=== PATIENT | male | born 1980 | race Caucasian/White ===

== ENCOUNTER 2020-03-28 09:42 | Outpatient (REF) | payer OTHER, SELFPAY ==
[2020-03-28 10:44] LABS: Hematocrit 42.6 % (42-52); Hemoglobin 14.4 g/dl (14.0-18.0); Mean Corpuscular HGB Conc 33.8 g/dl (31.0-36.0); Mean Corpuscular Hemoglobin 29.6 pg (27.0-33.0); Mean Corpuscular Volume 87.7 fL (80-98); Mean Platelet Volume 10.7 fL (9.4-12.4); Platelet Count 210 X10*3/uL (160-400); Red Blood Count 4.86 X10*6/uL (4.60-5.80); Red Cell Distribution Width 13.6 % (11.0-16.0); White Blood Count 5.9 X10*3/uL (4.8-10.8)
[2020-03-28 11:09] LABS: Alanine Aminotransferase 81 U/L (0-40); Albumin Level 4.5 g/dL (3.5-5.0); Alkaline Phosphatase 60 U/L (39-117); Anion Gap 12 (12-20); Aspartate Amino Transferase 32 U/L (5-37); Bilirubin Direct 0.2 mg/dL (0.0-0.5); Bilirubin Total 0.6 mg/dL (0.0-1.0); Blood Urea Nitrogen 16 mg/dL (9-16); Calcium 9.5 mg/dL (8.4-10.2); Carbon Dioxide 27 mmol/L (22-29); Chloride 106 mmol/L (96-108); Cholesterol 181 mg/dL; Estimated Glomerular Filt Rate > 60; Glucose Fasting 93 mg/dL (60-99); HDL Cholesterol 49 mg/dL; LDL Cholesterol Calculated 94 mg/dl; Potassium 4.1 mmol/L (3.3-5.1); Sodium 141 mmol/L (135-145); Total Protein 7.3 g/dL (6.5-8.0); Triglycerides 192 mg/dL
[2020-03-28 11:32] LABS: TSH reflex Free T4 1.88 uIU/mL (0.32-4.0)
== END 2020-03-28 09:43 | disposition home or self-care (01) ==
LOC: HO.LAB 09:42
PROVIDERS: PCP Hospitalist; Visit Provider Hospitalist
DX: Z00.00 Encounter for general adult medical examination without abnormal findings (principal); Z13.29 Encounter for screening for other suspected endocrine disorder; Z13.220 Encounter for screening for lipoid disorders
CPT/HCPCS: 36415; 80048; 80061; 80076; 84443; 85027

== ENCOUNTER → 2020-05-23 13:07 | Outpatient (BNVA) | payer OTHER, SELFPAY | PROVIDERS: PCP Hospitalist; Visit Provider Urology | DX: N50.811 Right testicular pain (principal) | CPT/HCPCS: 99202 ==

== ENCOUNTER 2021-01-21 14:54 | Outpatient (REF) | payer SELFPAY ==
--- NOTE | 2021-01-21 16:14 | MHC.AU.CE2 ---
Cerumen Removal- Left Ear Date of Visit: 01/21/21 Medical Conditions: No Conditions of Concern for Cerumen Removal Medications: No Medications of Concern for Cerumen Removal Procedure: Left Ear: Unusual Findings: Irritation, Reddened Skin Prior to Removal: Moderate Cerumen Present Outcome of Procedure: Cerumen was easily removed, Most cerumen was removed. Tympanic membrane is now visible. Irritation/Redness Other: Canal is red and irritated (pre-removal). Patient notes that the left ear is always very itchy and he is often scratching at it with q-tips and sometimes his keys. Advised that he could cause an abrasion which could get infected. Advised to use ear drops to help with itching. Used lighted curette and cotton swab for removal. Recommendations: Recommendations: Follow-up as needed Diagnosis Code(s): Primary Diagnosis: H61.22 Impacted Cerumen, Left Ear Services Performed: Cerumen Removal (CPT 88301) [facility] Signature: Provider: Kuldeep Gerard, CCC-A
== END 2021-01-21 14:55 | disposition home or self-care (01) ==
LOC: HO.HAP 14:54
PROVIDERS: Visit Provider Family Medicine
DX: H61.22 Impacted cerumen, left ear (principal)
CPT/HCPCS: 92700

== ENCOUNTER 2021-12-12 17:12 | Emergency (ER) | payer OTHER, SELFPAY ==
--- NOTE | ~2021-12-12 | XR_ITS ---
EXAMINATION: XR CHEST CLINICAL INFORMATION: Cough and congestion. COMPARISON: None TECHNIQUE: Frontal view of the chest was obtained. FINDINGS: Cardiac silhouette is normal in size. The lungs are well aerated. There is no lobar consolidation. No pleural effusion or pneumothorax. XR/XR chest 1V IMPRESSION: No acute pulmonary pathology.
[2021-12-12 17:17] VITALS: BP 143/80; PULSE 91; RESP 18; TEMP 36.3; O2SAT 98; BMI 30.4
[2021-12-12 18:15] LABS: Influenza A PCR NEGATIVE (Negative); Influenza B PCR NEGATIVE (Negative); Resp Syncy Virus RNA Qual PCR NEGATIVE (Negative); SARS COV2 PCR INHOUSE NEGATIVE (Negative)
--- NOTE | 2021-12-12 21:33 | ED.URI ---
HPI - URI/Sore Throat General Chief Complaint: Upper Respiratory Symptoms Stated Complaint: Flu like symptoms Time Seen by Provider: 12/12/21 21:27 Source: patient Mode of arrival: ambulatory Limitations: no limitations History of Present Illness HPI Narrative: 41-year-old male presents with 1 month of upper respiratory symptoms. Patient states that whenever he coughs he gets dizzy, and has a headache. He does not report fevers, palpitations, chest pain or pressure, abdominal pain, abdominal distention, nausea, vomiting, diarrhea, or weakness. MD elicited complaint: cough, rhinorrhea and nasal congestion Onset (ago): month(s) (1) Consistency: constant Severity: moderate Description of mucous: clear Able to tolerate fluids by mouth: Yes Exacerbating factors: exertion and deep breaths Relieving factors: nothing Context: sick contacts Associated symptoms: headache, rhinorrhea, nasal congestion and cough Treatments prior to arrival: none Related Data Previous Rx's Medication Instructions Recorded amoxicillin 500 mg tablet 500 mg PO Q12H 10 days #20 tabs 10/23/20 carbamide peroxide 6.5 % ear drops 5 drp otic (ears) DAILY 4 days #15 10/23/20 (Debrox) mL benzonatate 200 mg capsule 200 mg PO TID PRN cough #20 caps 12/12/21 codeine 10 mg-guaifenesin 100 mg/5 10 ml PO Q4-6H PRN cough #120 mL 12/12/21 mL oral liquid Allergies Allergy/AdvReac Type Severity Reaction Status Date / Time No Known Allergies Allergy Verified 10/23/20 10:59 Review of Systems Review of Systems: Constitutional: No Fever, No Chills ENT/Mouth: Positive congestion, No Ear Pain, No Hoarseness, No sore throat Eyes: No Eye Pain, No Swelling, No Redness, No Foreign Body Cardiovascular: No Chest Pain, No SOB Respiratory: Positive Cough, No Dyspnea Gastrointestinal: No Nausea, No Vomiting, No Diarrhea, No abdominal Pain Genitourinary: No Dysuria, No Hematuria Musculoskeletal: No joint pain, No Myalgias, No Joint Swelling Skin: No Skin lacerations, No rash Neuro: No Weakness, No Numbness, No Paresthesias, No Loss of Consciousness, positive Dizziness, No Headache Psych: No Anxiety/Panic, No Depression Heme/Lymph: no easy bruising, no Lymphadenopathy Endocrine: No Polyuria, No Polydipsia Yes all other systems are reviewed and are negative [facility] Past Medical History Attestation statement: The following information was validated with the patient. Source: old records reviewed Surgical History No pertinent past surgical history Family History Family History Father Pancreatic cancer Mother Healthy adult Social History Social History Alcohol intake: never Advance Directives: No Advance Directives Information Provided: No Physical Exam Vital Signs: Vital Signs: Last Vital Signs Temp 97.3 F 12/12/21 17:17 Pulse 91 12/12/21 17:17 Resp 18 12/12/21 17:17 BP 143/80 H 12/12/21 17:17 Pulse Ox 98 12/12/21 17:17 O2 Del Method 12/12/21 17:17 BMI result Body Mass Index 30.4 Appearance: Alert. Oriented X3. No acute distress. Eyes: Pupils equal, round and reactive to light. ENT: Pharynx normal. Neck: Normal inspection. Neck supple. CVS: Normal heart rate and rhythm. Pulses normal. Respiratory: No respiratory distress. Lung sounds clear to auscultation all lobes. Abdomen: Soft and nontender. Skin: Skin warm and dry. Normal skin color. Normal skin turgor. Extremities: No lower extremity edema. Gait well-balanced well coordinated Neuro: No motor deficit. No sensory deficit. Cranial nerves 2-12 intact Course Course Course Narrative: 41-year-old male presents with 1 month of upper respiratory symptoms. States that every time he coughs he gets dizzy, and has congestion. Order for COVID influenza RSV. Lung sounds clear to auscultation all lobes. Patient is afebrile, appears nontoxic, speaking in complete sentences with even unlabored respirations. Physical exam is unremarkable. Chest x-ray completed while patient was in the emergency department waiting room which is negative for acute findings requiring emergent intervention. COVID influenza RSV negative for acute findings. Plan of care is to discharge home with supportive measures. Patient verbalized understanding of and agrees to plan of care discharge home. Verbalized understanding of signs symptoms indicating need for emergent intervention. MDM - URI/Sore Throat Differential Diagnosis Differential diagnosis: Likely upper respiratory infection, sinusitis, viral infection, bronchitis, influenza and pharyngitis Medical Records Attestation: I reviewed the patient's medical records. Lab Data Attestation: I reviewed the patient's lab results. Labs: Lab Results 12/12/21 Range/Units 17:24 Influenza Type A (PCR) NEGATIVE (Negative) Influenza Type B (PCR) NEGATIVE (Negative) RSV RNA Qual (PCR) NEGATIVE (Negative) SARS-CoV-2 RNA (RT-PCR) NEGATIVE (Negative) Imaging Data Chest x-ray: Attestation: I personally reviewed and interpreted this imaging study as follows: Radiologist's impression: EXAMINATION: XR CHEST CLINICAL INFORMATION: Cough and congestion. COMPARISON: None TECHNIQUE: Frontal view of the chest was obtained. FINDINGS: Cardiac silhouette is normal in size. The lungs are well aerated. There is no lobar consolidation. No pleural effusion or pneumothorax. XR/XR chest 1V IMPRESSION: No acute pulmonary pathology. ? Discharge Plan Discharge Clinical Impression: Upper respiratory infection, Viral infection Patient Disposition: Home, Self-Care Instructions: Upper Respiratory Infection (ED), Viral Syndrome (ED) Additional Instructions: You were evaluated for 1 month upper respiratory symptoms. COVID influenza RSV are negative. Chest x-ray is negative for acute findings. Please take Tessalon Perles as needed for cough. Use albuterol inhaler every 4-6 hours as needed for shortness of breath. Use Robitussin AC at bedtime. This medication narcotic and has high risk for addiction and abuse. Do drive or operate machinery while taking medication. This medication can delay reaction time, increased risk for falls, cause drowsiness, and constipation. Drink plenty of fluids while taking this medication. Follow-up with primary care provider as needed. Return to the emergency department for any new, concerning, or worsening symptoms. Prescriptions: New benzonatate 200 mg capsule 200 mg PO TID PRN (Reason: cough) Qty: 20 0RF codeine-guaifenesin 10-100 mg/5 mL liquid 10 ml PO Q4-6H PRN (Reason: cough) Qty: 120 0RF No Action amoxicillin 500 mg tablet 500 mg PO Q12H 10 Days Qty: 20 0RF carbamide peroxide [Debrox] 6.5 % drops 5 drp otic (ears) DAILY 4 Days Qty: 15 0RF Stand Alone Forms: Work/School Release Interventions: ED Discharge Assessment Last Done: 12/12/21 22:14 Discharge Date/Time: 12/12/21 22:16
[2021-12-12] MEDS: Albuterol Sulfate 90 MCG 8 GM INHALER 2 PUFF INHALE (21:49)
[2021-12-12] MEDS: Benzonatate 100 MG CAPSULE 200 MG PO (22:12)
== END 2021-12-12 22:16 | disposition home or self-care (01) ==
PROVIDERS: Emergency Provider Emergency Medicine; PCP Family Medicine
DX: J06.9 Acute upper respiratory infection, unspecified (principal); B34.9 Viral infection, unspecified; R51.9 Headache, unspecified; R05.9 Cough, unspecified; Z20.822 Contact with and (suspected) exposure to COVID-19
CPT/HCPCS: 0241U; 71045; 99282; 99284